=== PATIENT | male | born 1990 | race Two or more races ===

== ENCOUNTER 2017-08-16 14:52 | Inpatient (IN) | payer OTHER ==
[~2017-08-16] VITALS: Ht 175.3 cm; Wt 65.1 kg
[2017-08-16 16:26] LABS: CALCIUM 8.1 mg/dL (8.5-10.1); CARBON DIOXIDE 26.6 mmol/L (21-32); CHLORIDE SERUM 103 mmol/L (98-107); CREATININE SERUM 0.8 mg/dL (0.7-1.3); GFR1 > 60 mL/min; GLUCOSE SERUM 74 mg/dL (74-106); POTASSIUM SERUM 3.2 mmol/L (3.5-5.1); SODIUM SERUM 143 mmol/L (136-145)
[2017-08-16 16:31] LABS: ALBUMIN 3.6 g/dL (3.4-5.0); ALKALINE PHOSPHATASE 90 U/L (46-116); ALT/SGPT 116 U/L (16-63); AST/SGOT 134 U/L (15-37); BILIRUBIN TOTAL 0.68 mg/dL (0.20-1.00)
[2017-08-16 18:14] VITALS: BP 115/54
[2017-08-16 21:14] VITALS: BP 114/64
[2017-08-17 05:11] VITALS: BP 124/78
[2017-08-17 06:17] LABS: BASOPHIL % 0.4 % (0-2); PLATELET COUNT 175 x10^3mcL (130-400); RED CELL DISTRIBUTION WIDTH 12.6 % (11.5-14.5)
[2017-08-17 06:21] LABS: ALKALINE PHOSPHATASE 75 U/L (46-116); ALT/SGPT 96 U/L (16-63); AST/SGOT 91 U/L (15-37); BILIRUBIN TOTAL 1.41 mg/dL (0.20-1.00); CALCIUM 8.4 mg/dL (8.5-10.1); CARBON DIOXIDE 26.5 mmol/L (21-32); CHLORIDE SERUM 103 mmol/L (98-107); CREATININE SERUM 0.7 mg/dL (0.7-1.3); GFR1 > 60 mL/min; GLUCOSE SERUM 85 mg/dL (74-106); POTASSIUM SERUM 4.2 mmol/L (3.5-5.1); SODIUM SERUM 137 mmol/L (136-145); TOTAL PROTEIN, SERUM 6.4 g/dL (6.4-8.2)
[2017-08-17 09:40] VITALS: BP 121/78
[2017-08-17 10:04] VITALS: BP 121/78
== END 2017-08-17 10:30 | disposition home or self-care (01) | DRG 775 ==
LOC: ED 14:52 → DU 17:15
PROVIDERS: Emergency Medicine; ADMIT Internal Medicine Pulmonary Disease
DX: F10.229 Alcohol dependence with intoxication, unspecified (principal); F10.239 Alcohol dependence with withdrawal, unspecified; G92 Toxic encephalopathy; F12.10 Cannabis abuse, uncomplicated; F17.210 Nicotine dependence, cigarettes, uncomplicated; L85.9 Epidermal thickening, unspecified; Z88.0 Allergy status to penicillin; Z88.8 Allergy status to other drugs, medicaments and biological substances; F32.9 Major depressive disorder, single episode, unspecified
CPT/HCPCS: G0480; J1650; J2060; J2405; J3411; J3475; J3480; J3490; J7030; J7040

== ENCOUNTER 2017-12-09 12:34 | Emergency (ER) | payer OTHER ==
[~2017-12-09] VITALS: Ht 175.3 cm; Wt 70.3 kg
[2017-12-09 12:37] VITALS: BP 136/88; Ht 175.3 cm; Wt 70.3 kg
== END 2017-12-09 12:50 | disposition left against medical advice (07) ==
LOC: ED 12:34
DX: Z53.21 Procedure and treatment not carried out due to patient leaving prior to being seen by health care provider (principal)

== ENCOUNTER 2018-04-03 00:06 | Emergency (ER) | payer OTHER | END 2018-04-03 01:38 | disposition left against medical advice (07) | LOC: ED 00:06 | DX: R56.9 Unspecified convulsions (principal); Z88.0 Allergy status to penicillin; Z88.1 Allergy status to other antibiotic agents ==

== ENCOUNTER 2020-08-30 19:04 | Emergency (ER) | payer OTHER ==
[~2020-08-30] VITALS: Ht 175.3 cm; Wt 56.7 kg
[2020-08-30 19:22] VITALS: Ht 175.3 cm; Wt 56.7 kg
[2020-08-30 19:57] LABS: BASOPHIL % 1.1 % (0-2); PLATELET COUNT 277 x10^3mcL (130-400); RED CELL DISTRIBUTION WIDTH 13.6 % (11.5-14.5)
[2020-08-30 21:19] LABS: AMPHETAMINE QUAL UR NONE DETECTED (See below)
[2020-08-30 22:21] LABS: CALCIUM 8.8 mg/dL (8.5-10.1); CARBON DIOXIDE 22.2 mmol/L (21-32); CHLORIDE SERUM 101 mmol/L (98-107); CREATININE SERUM 0.8 mg/dL (0.7-1.3); GFR1 > 60 mL/min; GLUCOSE SERUM 85 mg/dL (74-106); POTASSIUM SERUM 3.3 mmol/L (3.5-5.1); SODIUM SERUM 139 mmol/L (136-145)
[2020-08-30 22:25] LABS: ALBUMIN 4.3 g/dL (3.4-5.0); ALKALINE PHOSPHATASE 55 U/L (46-116); ALT/SGPT 25 U/L (16-63); AST/SGOT 19 U/L (15-37); BILIRUBIN TOTAL 0.36 mg/dL (0.20-1.00); TOTAL PROTEIN, SERUM 7.4 g/dL (6.4-8.2)
[2020-08-31 09:05] VITALS: BP 121/78
== END 2020-08-31 09:05 | disposition home or self-care (01) ==
LOC: ED 19:04
PROVIDERS: Emergency Medicine
DX: R45.851 Suicidal ideations (principal); F10.129 Alcohol abuse with intoxication, unspecified; Z88.0 Allergy status to penicillin; Z88.1 Allergy status to other antibiotic agents; Z20.828 Contact with and (suspected) exposure to other viral communicable diseases
CPT/HCPCS: G0480; J2060; Q0162; U0003

== ENCOUNTER 2020-10-18 22:22 | Emergency (ER) | payer OTHER ==
[~2020-10-18] VITALS: Ht 175.3 cm; Wt 62.6 kg
[2020-10-18 22:28] VITALS: Ht 175.3 cm; Wt 62.6 kg
[2020-10-18 22:59] VITALS: BP 121/73
== END 2020-10-18 23:57 | disposition home or self-care (01) ==
LOC: ED 22:22
DX: G40.909 Epilepsy, unspecified, not intractable, without status epilepticus (principal); S00.01XA Abrasion of scalp, initial encounter; S40.811A Abrasion of right upper arm, initial encounter; Z88.0 Allergy status to penicillin; Z88.1 Allergy status to other antibiotic agents; W18.30XA Fall on same level, unspecified, initial encounter; Y93.89 Activity, other specified; Y92.89 Other specified places as the place of occurrence of the external cause; Y99.8 Other external cause status
CPT/HCPCS: G0480